=== PATIENT | female | born 1980 | race Caucasian/White ===

== ENCOUNTER → 2023-10-22 | Outpatient (REF) | payer OTHER ==
[~2023-10-22] MED LIST: ASPI325T; COLA100C2; DARV100T; LOESTRIN; PERC7.5T8
== END ==
LOC: M PLALAB 13:56
PROVIDERS: ATTEND Obstetrics & Gynecology
DX: Z01.419 Encounter for gynecological examination (general) (routine) without abnormal findings (principal)
CPT/HCPCS: 87624; G0123

== ENCOUNTER → 2023-10-22 | Outpatient (CLI) | payer OTHER | LOC: M WHC 08:12 → MERGE 09:00 | PROVIDERS: ATTEND Obstetrics & Gynecology | DX: Z12.31 Encounter for screening mammogram for malignant neoplasm of breast (principal); R92.323 Mammographic fibroglandular density, bilateral breasts ==

== ENCOUNTER → 2024-05-31 | Outpatient (REF) | LOC: M EMP 08:39 | PROVIDERS: ATTEND Family Medicine | DX: Z11.52 Encounter for screening for COVID-19 (principal) ==

== ENCOUNTER → 2025-03-08 | Outpatient (REF) | payer OTHER ==
[2025-03-08 18:55] LABS: IRON (FE) 80.0 UG/DL (50-170)
[2025-03-08 18:56] LABS: PERCENT SATURATION 27.9 % (13.2-45.0)
== END ==
LOC: M LAB REF 17:51
PROVIDERS: ATTEND Internal Medicine
DX: D64.9 Anemia, unspecified (principal)

== ENCOUNTER → 2025-03-09 | Outpatient (CLI) | payer OTHER | LOC: M WHC 16:09 | PROVIDERS: ATTEND Advanced Practice Midwife | DX: Z12.31 Encounter for screening mammogram for malignant neoplasm of breast (principal); R92.333 Mammographic heterogeneous density, bilateral breasts; N63.10 Unspecified lump in the right breast, unspecified quadrant; N63.20 Unspecified lump in the left breast, unspecified quadrant ==

== ENCOUNTER → 2025-04-26 | Outpatient (CLI) | payer OTHER | LOC: M WHC 14:41 | PROVIDERS: ATTEND Advanced Practice Midwife | DX: R92.8 Other abnormal and inconclusive findings on diagnostic imaging of breast (principal); N60.11 Diffuse cystic mastopathy of right breast; N60.12 Diffuse cystic mastopathy of left breast ==